=== PATIENT | male | born 1970 | race African-American/Black ===

== ENCOUNTER 2018-01-24 07:58 | Emergency (ER) | payer BC ==
[~2018-01-24] VITALS: Ht 160 cm; Wt 79.4 kg
[2018-01-24 08:01] VITALS: BP 131/86
[2018-01-24] MEDS ORDERED: FOLIC ACID20 MG PO (08:07)
[2018-01-24] MEDS ORDERED: METHOTREXATE 22.5 MG PO (08:07)
[2018-01-24] MEDS ORDERED: ALPHAGAN P5 ML OPHTHALMIC (08:08)
[2018-01-24] MEDS ORDERED: TRAVATAN Z2.5 ML OPHTHALMIC (08:08)
[2018-01-24] MEDS ORDERED: PEPCID20 MG PO (09:09)
== END 2018-01-24 09:26 | disposition home or self-care (01) ==
LOC: ER 07:58
DX: T63.441A Toxic effect of venom of bees, accidental (unintentional), initial encounter (principal); J45.909 Unspecified asthma, uncomplicated; Z88.0 Allergy status to penicillin; Y93.89 Activity, other specified; Y92.89 Other specified places as the place of occurrence of the external cause; Y99.8 Other external cause status